=== PATIENT | male | born 1985 | race Caucasian/White ===

== ENCOUNTER → 2016-07-07 06:37 | Emergency (ER) | payer BC ==
[~2016-07-07 06:37] MED LIST: DOXYcycline CAP(*) 100 MG PO ONE
--- NOTE | 2016-07-07 06:42 | ED ---
Bite Injury/Animal - HPI Summary HPI Summary: 31M presents with tick bite on Thursday. He removed the tick from his left thigh. He states the tick was a deer tick and was very painful to remove and appeared to be engorged. His removed it with the tick removal tool and got the head. The area where the tick was is red. He states he thinks the tick has been on for at least 24 hours. He states he has removed many ticks in the past but it has never been this painful. - History of Current Complaint Chief Complaint: EDAnimalBite Stated Complaint: TICK BITE Time Seen by Provider: 07/07/16 06:41 - Allergies/Home Medications Allergies/Adverse Reactions: Allergies Allergy/AdvReac Type Severity Reaction Status Date / Time Atropine Allergy Severe See Comment Verified 04/19/14 04:42 PMH/Surg Hx/FS Hx/Imm Hx Endocrine/Hematology History: Reports: Hx Anticoagulant Therapy EENT History: Denies: Hx Hearing Problem - Social History Alcohol Use: Occasionally Alcohol Amount: once a month Substance Use Type: Reports: None Smoking Status (MU): Never Smoked Tobacco Review of Systems Negative: Fever Negative: Chest Pain Negative: Shortness Of Breath Positive: Other - tick bite on left thigh All Other Systems Reviewed And Are Negative: Yes Physical Exam Triage Information Reviewed: Yes Vital Signs Reviewed: Yes Appearance: Positive: Well-Appearing Skin: Positive: Warm, Dry, Other - lesion noted on left thigh Head/Face: Positive: Normal Head/Face Inspection Eyes: Positive: Normal, Conjunctiva Clear Respiratory/Lung Sounds: Positive: Clear to Auscultation, Breath Sounds Present Cardiovascular: Positive: Normal, RRR Bite Injury Course/Dx - Course Course Of Treatment: 31M presents with tick bite on Thursday. states tick was engorged and was able to remove it with tick removal. discussed tick ppx and agreed that due to being engorged and it being less than 72 hours going to treat ppx for lyme disease. gave 200mg doxycycline as patient no contraindication. patient understands and agrees with plan - Diagnoses Differential Diagnosis/HQI/PQRI: Positive: Puncture, Other - lyme, tick bite Provider Diagnosis: Tick bite Discharge - Discharge Plan Condition: Good Disposition: HOME Patient Education Materials: Tick Bite (ED) Referrals: Antony DUNNE,Mark Talavera [Primary Care Provider] - Additional Instructions: You have been prophylactically treated for Lyme disease Return to ED if develop any rash or signs of infection
[2016-07-07 06:51] VITALS: BP 147/94
== END | disposition home or self-care (01) ==
LOC: ED 06:37
DX: S70.362A Insect bite (nonvenomous), left thigh, initial encounter (principal); W57.XXXA Bitten or stung by nonvenomous insect and other nonvenomous arthropods, initial encounter; Y93.9 Activity, unspecified; Y92.9 Unspecified place or not applicable; Y99.9 Unspecified external cause status
CPT/HCPCS: 99281; A9270-GY

== ENCOUNTER 2016-10-08 07:43 | Emergency (ER) | payer BC ==
[2016-10-08] MEDS ORDERED: Meclizine TAB* 12.5 MG PO ONE (08:25)
--- NOTE | 2016-10-08 08:56 | RAD ---
Indication: Vertigo. Comparison is made with previous exam dated April 19, 2014. CT of the brain was performed without IV contrast. Ventricular structures are midline. No midline shift is noted. The extra-axial spaces are unremarkable. There is no evidence of intracranial mass or hemorrhage. No other high or low density lesions are identified. Mastoid air cells and paranasal sinuses are otherwise unremarkable. IMPRESSION: There is no evidence of intracranial mass or hemorrhage noted.
[2016-10-08 10:00] LABS: Hematocrit 48 % (42-52); Hemoglobin 16.6 g/dl (14.0-18.0); Mean Corpuscular HGB Conc 34 g/dl (31-36); Mean Corpuscular Hemoglobin 31 pg (27-31); Mean Corpuscular Volume 89 fL (80-94); Mean Platelet Volume 8 um3 (7.4-10.4); Red Blood Count 5.43 10^6/ul (4.0-5.4); Red Cell Distribution Width 13 % (10.5-15); White Blood Count 8.9 10^3/ul (3.5-10.8)
[2016-10-08 10:12] LABS: Albumin 4.2 g/dL (3.2-5.2); BUN/Creatinine Ratio 17.7 (8-20); Calcium 9.5 mg/dL (8.6-10.3); EGFR Non-African American 90.2 (>60); Globulin 2.6 g/dL (2-4); Potassium 4.3 mmol/L (3.5-5.0); Total Bilirubin 0.6 mg/dL (0.2-1.0); Total Protein 6.8 g/dL (6.4-8.9)
[2016-10-08 10:50] VITALS: BP 137/82
--- NOTE | 2016-10-08 10:54 | ED ---
Yoni Oakes Benjamin, scribed for Alexander Allison MD on 10/08/16 at 0905 . Dizziness - HPI Summary HPI Summary: 31yo male c/o sudden onset of dizziness today where he felt like he was going to pass out. Pt states that he was losing balance and leaning to his right side. Pt also reports diaphoresis, mild nausea and dyspnea. 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 Pt was put on coumadin after his PE episode but is not on any blood thinner currently. Dizziness worsens with erect position and lying down helps his dizziness. - History Of Current Complaint Chief Complaint: EDDizziness Stated Complaint: DIZZY/SWEATING Time Seen by Provider: 10/08/16 07:58 Hx Obtained From: Patient Onset/Duration: Still Present, Suddenly Timing: Constant Severity Initially: Moderate Severity Currently: Moderate Character: Head Spinning, Dizzy Aggravating Factor(s): Position Change, Supine To Erect, Change In Head Position Alleviating Factor(s): Lying Down Associated Signs And Symptoms: Positive: Nausea, Diaphoresis - Allergies/Home Medications Allergies/Adverse Reactions: Allergies Allergy/AdvReac Type Severity Reaction Status Date / Time Atropine Allergy Severe See Comment Verified 04/19/14 04:42 PMH/Surg Hx/FS Hx/Imm Hx Endocrine/Hematology History: Reports: Hx Anticoagulant Therapy Cardiovascular History: Reports: Hx Deep Vein Thrombosis Respiratory History: Reports: Hx Pulmonary Edema Sensory History: Denies: Hx Hearing Problem Infectious Disease History: No Infectious Disease History: Denies: Traveled Outside the [place] in Last 30 Days - Family History Known Family History: Positive: Cardiac Disease, Hypertension, Blood Disorder - clotting disorders Negative: Diabetes - Social History Occupation: Employed Full-time Alcohol Use: Occasionally Alcohol Amount: once a month Substance Use Type: Reports: None Smoking Status (MU): Never Smoked Tobacco Review of Systems Positive: Skin Diaphoresis Eyes: Negative ENT: Negative Cardiovascular: Negative Respiratory: Negative Positive: Nausea Genitourinary: Negative Musculoskeletal: Negative Skin: Negative Neurological: Other - dizziness Psychological: Normal All Other Systems Reviewed And Are Negative: Yes Physical Exam Triage Information Reviewed: Yes Vital Signs On Initial Exam: Initial Vitals Temp Pulse Resp BP Pulse Ox 95.9 F 75 20 149/88 95 10/08/16 07:44 10/08/16 07:44 10/08/16 07:44 10/08/16 07:44 10/08/16 07:44 Vital Signs Reviewed: Yes Appearance: Positive: Well-Appearing, No Pain Distress, Well-Nourished Skin: Positive: Warm, Skin Color Reflects Adequate Perfusion, Dry Head/Face: Positive: Normal Head/Face Inspection Eyes: Positive: Normal ENT: Positive: Normal ENT inspection Neck: Positive: Supple, Nontender Respiratory/Lung Sounds: Positive: Clear to Auscultation, Breath Sounds Present Cardiovascular: Positive: RRR Abdomen Description: Positive: Nontender, Soft Bowel Sounds: Positive: Present Musculoskeletal: Positive: Normal, Strength/ROM Intact Neurological: Positive: Normal, Sensory/Motor Intact, Alert, Oriented to Person Place, Time, CN Intact II-III Psychiatric: Positive: Affect/Mood Appropriate - [place] Coma Scale Coma Scale Total: 15 Diagnostics - Vital Signs Vital Signs Temp Pulse Resp BP Pulse Ox 10/08/16 08:05 73 14 97 10/08/16 07:53 97 F 71 15 141/82 98 10/08/16 07:44 95.9 F 75 20 149/88 95 - Laboratory Lab Results: Lab Results 10/08/16 10/08/16 10/08/16 Range/Units 09:45 09:45 09:45 WBC 8.9 (3.5-10.8) 10^3/ul RBC 5.43 H (4.0-5.4) 10^6/ul Hgb 16.6 (14.0-18.0) g/dl Hct 48 (42-52) % MCV 89 (80-94) fL MCH 31 (27-31) pg MCHC 34 (31-36) g/dl RDW 13 (10.5-15) % Plt Count 240 (150-450) 10^3/ul MPV 8 (7.4-10.4) um3 Neut % (Auto) 73.3 (38-83) % Lymph % (Auto) 18.1 L (25-47) % [place] % (Auto) 7.2 (1-9) % Eos % (Auto) 0.7 (0-6) % Baso % (Auto) 0.7 (0-2) % Absolute Neuts (auto) 6.5 (1.5-7.7) 10^3/ul Absolute Lymphs (auto) 1.6 (1.0-4.8) 10^3/ul Absolute Monos (auto) 0.6 (0-0.8) 10^3/ul Absolute Eos (auto) 0.1 (0-0.6) 10^3/ul Absolute Basos (auto) 0.1 (0-0.2) 10^3/ul Absolute Nucleated RBC 0 10^3/ul Nucleated RBC % 0 INR (Anticoag Therapy) 0.90 (0.89-1.11) Sodium 138 (133-145) mmol/L Potassium 4.3 (3.5-5.0) mmol/L Chloride 107 (101-111) mmol/L Carbon Dioxide 25 (22-32) mmol/L Anion Gap 6 (2-11) mmol/L BUN 17 (6-24) mg/dL Creatinine 0.96 (0.67-1.17) mg/dL Est GFR ( Amer) 116.0 (>60) Est GFR (Non-Af Amer) 90.2 (>60) BUN/Creatinine Ratio 17.7 (8-20) Glucose 85 (70-100) mg/dL Calcium 9.5 (8.6-10.3) mg/dL Total Bilirubin 0.60 (0.2-1.0) mg/dL AST 21 (13-39) U/L ALT 36 (7-52) U/L Alkaline Phosphatase 32 L (34-104) U/L Total Protein 6.8 (6.4-8.9) g/dL Albumin 4.2 (3.2-5.2) g/dL Globulin 2.6 (2-4) g/dL Albumin/Globulin Ratio 1.6 (1-3) Result Diagrams: 10/08/16 09:45 10/08/16 09:45 Lab Statement: Any lab studies that have been ordered have been reviewed, and results considered in the medical decision making process. - CT CT brain CT Interpretation: No Acute Changes CT Interpretation Completed By: Radiologist - EKG 0753. Cardiac Rate: NL - 74bpm EKG Rhythm: Sinus Rhythm ST Segment: Normal Ectopy: None Dizzy Course/Dx - Course Course Of Treatment: Mr. Carney presented with the acute onset of vertigo. He was evaluated by Dr. Thompson, labs and CT. He improved significantly with meclizine.This seems to be a peripheral vertigo and he will be treated as an outpatient with meclizine. - Diagnoses Provider Diagnoses: Peripheral vertigo Discharge - Discharge Plan Condition: Stable Disposition: HOME Prescriptions: Meclizine TAB* [Antivert 12.5 TAB*] 25 mg PO TID PRN #20 tab PRN Reason: Dizziness Patient Education Materials: Vertigo (ED) Referrals: Antony DUNNE,Mark Talavera [Primary Care Provider] - The documentation as recorded by the Yoni tucker Benjamin accurately reflects the service I personally performed and the decisions made by , Alexander Allison MD.
--- NOTE | 2016-10-08 14:10 | CONS ---
NEUROLOGY CONSULTATION: DATE OF CONSULT: 10/08/16 REFERRING PHYSICIAN: Dr. Allison. LOCATION: He is in the emergency room. CHIEF COMPLAINT: Dizziness, nausea. 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 He felt like he might pass out and broke out into a sweat. He presented to the emergency room. He finds his nausea has improved but if he moves he feels very dizzy and nauseous. He felt close to vomiting but did not. He felt like he might pass out but did not lose consciousness or fall. Subsequently, he was noted some numbness and tingling in his left hand. He says that he has had that before in association with migraine headaches. He has a history of migraines with visual aura consisting of flickering lights and then numbness of his left hand, which moves up the arm and into the left side of his face. It is then followed by a bad pounding headache with nausea. He has had vertigo with migraine headaches as well in the past. He has not had episodes of vertigo without headache, however. He had some recent tooth pain from a chipped tooth and took a Vicodin from his last night. Normally, he does not take any medications on a regular basis. He does not have a bad headache but he has still some pressure in the left maxillary area. He does not have any ear pain today or in recent days and no change in hearing recently. He feels his vision is a little bit blurry but no double vision. He does not have any numbness in his face currently nor in his limbs. PAST MEDICAL HISTORY: Unremarkable. He is generally in very good health. He does not take any medications on a regular basis. Past medical history is notable for heterozygous Leiden factor V mutation. He had a DVT by a venous Doppler on 10/27/12. However, he says he does not take any medication on a regular basis, and I will have to go back and ask him if that includes aspirin or not. He had a brain MRI on 04/19/14 when he presented with a bad headache and left-sided numbness. MEDICATIONS: Again, he says he takes no medication on a regular basis but took a Vicodin last night. ALLERGIES: He is listed as having an allergy to ATROPINE. REVIEW OF SYSTEMS: Negative for current headache, some blurry vision but no double vision, no change in hearing or tinnitus. He has not had any fevers or chills. He has not had any recent weight loss. There is no history of head trauma or recent falls. He does not notice any weakness in his limbs nor numbness in his lower extremities. There is no history of diabetes or heart disease. He is a nonsmoker. He has seasonal allergies. PHYSICAL EXAMINATION: He is a well-nourished, well-hydrated, and somewhat overweight. Blood pressure on this monitor is 140/80, heart rate in the 70s and in sinus, respiratory rate is 18. Heart is in a regular rate and rhythm without murmurs. Carotid pulses are hard to feel but there are no cervical bruits. Neck is supple. Oral mucosa is moist and I do not see any pharyngeal erythema. Tympanic membranes are a little dull bilaterally but no pus or bulging. Neurologic Exam: Pupils react equally from 4 to 2.5 mm. Funduscopic exam reveals normal discs. Eye movements are normal and specifically there is no nystagmus. There is no ptosis either. Facial musculature is symmetric. Facial sensation to light touch is intact and symmetric. Tongue protrudes in the midline and palate rises symmetrically. There is no dysarthria. Hearing is intact bilaterally. Motor exam reveals normal tone and strength in upper and lower extremities. There is no drift of any limb. [id number] maneuver is normal bilaterally. Finger taps are normal in both hands. Sensory exam is intact to light touch in all 4 limbs. Reflexes are hypoactive but present. Plantar responses are flexor bilaterally. I did not attempt to ambulate him. He is alert and a good detailed historian. Memory is intact and language is fluent. He has good attention, concentration, and fund of knowledge. IMPRESSION: Acute onset of vertigo with nausea, which may be migrainous. He does not have any abnormalities on neurological exam to suggest a focal brainstem lesion. At this point, I would recommend he get a stat brain CT without contrast and some routine labs. I think it is safe to give him meclizine for symptoms and we will see what evolves. If he develops some of his typical migraines, then we can safely we conclude that this is migrainous vertigo. If symptoms persist and he does not get a headache, we may need to get an MRI of his brain and also perhaps an MR angiogram or CT angiogram of his posterior circulation. [id number]/[facility] #: [id number] SARAH
== END 2016-10-08 10:55 | disposition home or self-care (01) ==
LOC: ED 07:43
DX: R42 Dizziness and giddiness (principal); R06.00 Dyspnea, unspecified
CPT/HCPCS: 36415; 70450; 80053; 85025; 85610; 93005; 99282; A9270-GY

== ENCOUNTER 2017-02-04 06:04 | Emergency (ER) | payer BC ==
[2017-02-04 06:09] VITALS: BP 157/95
[2017-02-04] MEDS ORDERED: oxyCODONE/Acetamin 5/325 MG* TAB PO ONE (06:17)
[2017-02-04] MEDS ORDERED: Clindamycin CAP* 150 MG PO ONE (06:18)
[2017-02-04] MEDS ORDERED: Ibuprofen TAB* 800 MG PO ONE (06:18)
--- NOTE | 2017-02-04 06:24 | ED ---
Janneth Oakes Thomas, scribed for Srini Fermin MD on 02/04/17 at 0620 . Throat Pain/Nasal Congestion - HPI Summary HPI Summary: The pt is a 31 y/o M presenting to the ED c/o chronic dental pain that has worsened in the last week. The patient rates the pain 6/10. The pain is constant. He has a broken left upper molar. There is decay in the upper molars. - History of Current Complaint Chief Complaint: EDDentalPain Time Seen by Provider: 02/04/17 06:12 Hx Obtained From: Patient Onset/Duration: Lasting Weeks - chronic, Still Present, Worse Since - last week Severity: Moderate Associated Signs And Symptoms: Positive: Negative Cough: None Related History: Other (Noted In Comments) - Chronic dental problems - Allergies/Home Medications Allergies/Adverse Reactions: Allergies Allergy/AdvReac Type Severity Reaction Status Date / Time Atropine Allergy Severe See Comment Verified 02/04/17 06:09 PMH/Surg Hx/FS Hx/Imm Hx Previously Healthy: No Endocrine/Hematology History: Reports: Hx Anticoagulant Therapy Cardiovascular History: Reports: Hx Deep Vein Thrombosis Respiratory History: Reports: Hx Pulmonary Edema Sensory History: Denies: Hx Hearing Problem Infectious Disease History: No Infectious Disease History: Denies: Traveled Outside the [place] in Last 30 Days - Family History Known Family History: Positive: Cardiac Disease, Hypertension, Blood Disorder - clotting disorders Negative: Diabetes - Social History Occupation: Employed Full-time Alcohol Use: Occasionally Alcohol Amount: once a month Substance Use Type: Reports: None Smoking Status (MU): Never Smoked Tobacco Review of Systems Negative: Fever Positive: Dental Pain All Other Systems Reviewed And Are Negative: Yes Physical Exam - Summary Physical Exam Summary: VITAL SIGNS: Reviewed. GENERAL: Patient is a well-developed and nourished male who is lying comfortable in the stretcher. Patient is not in any acute respiratory distress. HEAD AND FACE: No signs of trauma. No ecchymosis, hematomas or skull depressions. No sinus tenderness. EYES: PERRLA, EOMI x 2, No injected conjunctiva, no nystagmus. He has a broken left upper molar. There is decay in the upper molars. EARS: Hearing grossly intact. Ear canals and tympanic membranes are within normal limits. MOUTH: Oropharynx within normal limits. NECK: Supple, trachea is midline, no adenopathy, no JVD, no carotid bruit, no c- spine tenderness, neck with full ROM. CHEST: Symmetric, no tenderness at palpation LUNGS: Clear to auscultation bilaterally. No wheezing or crackles. CVS: Regular rate and rhythm, S1 and S2 present, no murmurs or gallops appreciated. ABDOMEN: Soft, non-tender. No signs of distention. No rebound no guarding, and no masses palpated. Bowel sounds are normal. EXTREMITIES: FROM in all major joints, no edema, no cyanosis or clubbing. NEURO: Alert and oriented x 3. No acute neurological deficits. Speech is normal and follows commands. SKIN: Dry and warm Triage Information Reviewed: Yes Vital Signs On Initial Exam: Initial Vitals Temp Pulse Resp BP Pulse Ox 97.1 F 75 18 157/95 96 02/04/17 06:06 02/04/17 06:06 02/04/17 06:06 02/04/17 06:06 02/04/17 06:06 Vital Signs Reviewed: Yes Diagnostics - Vital Signs Vital Signs Temp Pulse Resp BP Pulse Ox 02/04/17 06:06 97.1 F 75 18 157/95 96 - Laboratory Lab Statement: Any lab studies that have been ordered have been reviewed, and results considered in the medical decision making process. EENT Course/Dx - Course Assessment/Plan: The pt is a 31 y/o M presenting to the ED c/o chronic dental pain that has worsened in the last week. The patient rates the pain 6/10. The pain is constant. He has a broken left upper molar. There is decay in the upper molars. The patient was given clindamycin, ibuprofen, and Percocet. He is discharged with follow up at the dentist. - Diagnoses Provider Diagnoses: Dental decay, Gingivitis Discharge - Discharge Plan Condition: Stable Disposition: HOME Patient Education Materials: Toothache (ED), Gingivitis (ED) Referrals: Antony DUNNE,Mark Talavera [Primary Care Provider] - If Needed Additional Instructions: Follow up at your dentist in the next 2-3 days. The documentation as recorded by the Janneth tucker Thomas accurately reflects the service I personally performed and the decisions made by , Srini Fermin MD.
== END 2017-02-04 06:35 | disposition home or self-care (01) ==
LOC: ED 06:04
DX: K02.9 Dental caries, unspecified (principal); K05.10 Chronic gingivitis, plaque induced; K08.89 Other specified disorders of teeth and supporting structures
CPT/HCPCS: 99282; A9270-GY

== ENCOUNTER 2017-02-22 12:42 | Emergency (ER) | payer BC ==
--- NOTE | 2017-02-22 14:19 | RAD ---
INDICATION: RIGHT leg pain. History of LEFT lower extremity DVT. COMPARISON: November 14, 2011 LEFT lower extremity venous ultrasound. TECHNIQUE: Montero scale, color Doppler, and spectral analysis of the deep veins of the RIGHT lower extremity. Vessel compression, phasicity, and augmentation assessed. REPORT: The RIGHT common femoral, great saphenous, profunda femoral, femoral, popliteal, peroneal, and posterior tibial veins are patent. Patency of the LEFT common femoral vein documented. IMPRESSION: No evidence for RIGHT lower extremity deep venous thrombosis.
[2017-02-22 14:57] VITALS: BP 167/106
--- NOTE | 2017-02-22 16:58 | ED ---
Tanya Oakes Gabriel, scribed for Alexander Allison MD on 02/22/17 at 1310 . Back Pain - HPI Summary HPI Summary: This patient is a 31 year old M presenting [facility] [place] [place] by with a chief complaint of right sided back pain since a week ago. The patient rates the pain 10/10 in severity and radiating down his right leg into the front of his suggs. He states the pain started after he had been sitting for extended periods of time that weekend. Patient has a history of PEs and DVTs and would like to rule them out. He also has broken his back and deals with chronic back pain. - History of Current Complaint Chief Complaint: EDBackInjuryPain Stated Complaint: RT HIP PAIN Time Seen by Provider: 02/22/17 12:47 Hx Obtained From: Patient Onset/Duration: Lasting Weeks - 1, Still Present Onset/Duration: Still Present Timing: Constant Severity Initially: Severe Severity Currently: Severe Pain Intensity: 10 Pain Scale Used: 0-10 Numeric Related History: Previous Back Injury - broke L3 - Allergies/Home Medications Allergies/Adverse Reactions: Allergies Allergy/AdvReac Type Severity Reaction Status Date / Time Atropine Allergy Severe See Comment Verified 02/22/17 12:52 PMH/Surg Hx/FS Hx/Imm Hx Previously Healthy: No Endocrine/Hematology History: Reports: Hx Anticoagulant Therapy Cardiovascular History: Reports: Hx Deep Vein Thrombosis Respiratory History: Reports: Hx Pulmonary Edema Sensory History: Denies: Hx Hearing Problem Infectious Disease History: No Infectious Disease History: Denies: Traveled Outside the [place] in Last 30 Days - Family History Known Family History: Positive: Cardiac Disease, Hypertension, Blood Disorder - clotting disorders Negative: Diabetes - Social History Alcohol Use: Occasionally Alcohol Amount: once a month Hx Substance Use: No Substance Use Type: Reports: None Hx Tobacco Use: No Smoking Status (MU): Never Smoked Tobacco Review of Systems Negative: Fever Positive: Other - back pain All Other Systems Reviewed And Are Negative: Yes Physical Exam - Summary Physical Exam Summary: Appearance: The patient is well-nourished in no acute distress and in no acute pain. Skin: The skin is warm and dry and skin color reflects adequate perfusion. HEENT: ~The head is normocephalic and atraumatic. The pupils are equal and reactive. The conjunctivae are clear and without drainage. ~Nares are patent and without drainage. ~Mouth reveals moist mucous membranes and the throat is without erythema and exudate. ~The external ears are intact. The ear canals are patent and without drainage. The tympanic membranes are intact. Neck: the neck is supple with full range of motion and non-tender. There are no carotid bruits. ~There is no neck vein distension. Respiratory: Chest is non-tender. ~Lungs are clear to auscultation and breath sounds are symmetrical and equal. Cardiovascular: Heart is regular rate and rhythm. ~There is no murmur or rub auscultated. ~~There is no peripheral edema and pulses are symmetrical and equal. Abdomen: The abdomen is soft and non-tender. ~There are normal bowel sounds heard in all four quadrants and there is no organomegaly palpated. Musculoskeletal: There is tenderness in right sciatica area. Extremities are non -tender with full range of motion. ~There is good capillary refill. ~There is no peripheral edema or calf tenderness elicited. Neurological: Patient is alert and oriented to person, place and time. ~The patient has symmetrical motor strength in all four extremities. ~Cranial nerves are grossly intact. Deep tendon reflexes are symmetrical and equal in all four extremities. Psychiatric: The patient has an appropriate affect and does not exhibit any anxiety or depression. Triage Information Reviewed: Yes Vital Signs On Initial Exam: Initial Vitals Temp Pulse Resp BP Pulse Ox 97.4 F 86 16 139/95 97 02/22/17 12:50 02/22/17 12:50 02/22/17 12:50 02/22/17 12:50 02/22/17 12:50 Vital Signs Reviewed: Yes Diagnostics - Vital Signs Vital Signs Temp Pulse Resp BP Pulse Ox 02/22/17 12:50 97.4 F 86 16 139/95 97 - Laboratory Lab Statement: Any lab studies that have been ordered have been reviewed, and results considered in the medical decision making process. - Additional Comments Diagnostic Additional Comments: Venous Doppler study reveals, per radiologist, No evidence for RIGHT lower extremity deep venous thrombosis. ED physician has reviewed this radiology report. Back Pain Course/Dx - Course Course Of Treatment: Mr. Carney presented with what seemed like right sciatica pain but felt to him similar to his previous DVT (he has Factor 5 Leiden). An U /S was negative for clot and I will treat him conventionally. - Diagnoses Provider Diagnoses: Acute sciatica Discharge - Discharge Plan Condition: Stable Disposition: HOME Prescriptions: LORazepam TAB(*) [Ativan TAB(*)] 1 mg PO Q6H PRN #20 tab MDD 4 PRN Reason: Pain oxyCODONE/Acetamin 5/325 MG* [Percocet 5/325 TAB*] 1 tab PO Q6H PRN #20 tab MDD 4 PRN Reason: Pain Patient Education Materials: Hydrocodone/Acetaminophen (By mouth), Lorazepam ( By mouth) Forms: *Work Release Referrals: Antony DUNNE,Mark Talavera [Primary Care Provider] - Additional Instructions: RETURN TO THE EMERGENCY DEPARTMENT FOR CHANGING OR WORSENING SYMPTOMS. The documentation as recorded by the Tanya tucker Gabriel accurately reflects the service I personally performed and the decisions made by , Alexander Allison MD.
== END 2017-02-22 14:55 | disposition home or self-care (01) ==
LOC: ED 12:42
DX: M54.30 Sciatica, unspecified side (principal); M79.604 Pain in right leg
CPT/HCPCS: 99282

== ENCOUNTER 2017-02-25 11:04 | Emergency (ER) | payer BC ==
[2017-02-25] MEDS ORDERED: Ondansetron INJ* 2 MG/ML VIAL IV ONE (11:11)
[2017-02-25] MEDS ORDERED: Morphine INJ* 4 MG/ML 1 ML CARPUJECT IV ONE (11:11)
[2017-02-25] MEDS ORDERED: Dexamethasone IV* 4 MG/ML 1 ML (4 MG) IV SLOW PU ONE (11:22)
[2017-02-25] MEDS ORDERED: HYDROmorphone INJ* 2 MG/ML CARPUJECT SYRINGE ONE (11:43)
[2017-02-25] MEDS ORDERED: HYDROmorphone INJ* 2 MG/ML CARPUJECT SYRINGE IV SLOW PU ONE (11:47)
[2017-02-25] MEDS ORDERED: Ketorolac INJ* 30 MG/ML 1 ML VIAL IV PUSH ONE (12:03)
[2017-02-25] MEDS ORDERED: Diazepam SYRINGE* 5 MG/ML 2 ML SYRINGE (10 MG total) IV ONE (12:03)
[2017-02-25] MEDS ORDERED: Diazepam TAB(*) 5 MG PO ONE (12:09)
[2017-02-25] MEDS ORDERED: Ondansetron ODT TAB* 4 MG ONE (15:26)
[2017-02-25 15:40] VITALS: BP 128/84
[2017-02-25] MEDS ORDERED: Ondansetron ODT TAB* 4 MG PO ONE (15:43)
--- NOTE | 2017-02-25 22:57 | ED ---
Tanya Oakes Gabriel, scribed for Rafiq Gomez MD on 02/25/17 at 1115 . Back Pain - HPI Summary HPI Summary: This patient is a 31 year old M BIBA to [facility] with a chief complaint of back pain exacerbation since two weeks ago. The patient rates the throbbing pain 9/ 10 in severity and radiating down his quad, into the front of his suggs. Symptoms aggravated by movement. Symptoms alleviated by lying. Patient reports hip pain, increased urination retention, and weakness in LE. Patient denies incontinence, CP, SOB, and LE edema. Pt takes Percocet and ASA for pain. - History of Current Complaint Chief Complaint: EDBackInjuryPain Stated Complaint: BACK PAIN Time Seen by Provider: 02/25/17 11:10 Hx Obtained From: Patient Onset/Duration: Lasting Weeks - 2, Still Present Timing: Constant Severity Initially: Mild Severity Currently: Severe Pain Intensity: 9 Pain Scale Used: 0-10 Numeric Character: Throbbing Aggravating Symptom(s): Movement Alleviating Symptom(s): Rest Associated Signs And Symptoms: Positive: Negative - incontinence, CP, SOB, and LE edema, Other - hip pain, increased urination retention, and weakness in LE - Allergies/Home Medications Allergies/Adverse Reactions: Allergies Allergy/AdvReac Type Severity Reaction Status Date / Time Atropine Allergy Severe See Comment Verified 02/22/17 12:52 PMH/Surg Hx/FS Hx/Imm Hx Previously Healthy: No Endocrine/Hematology History: Reports: Hx Anticoagulant Therapy Cardiovascular History: Reports: Hx Deep Vein Thrombosis Respiratory History: Reports: Hx Pulmonary Edema Sensory History: Denies: Hx Hearing Problem Infectious Disease History: No Infectious Disease History: Denies: Traveled Outside the [place] in Last 30 Days - Family History Known Family History: Positive: Cardiac Disease, Hypertension, Blood Disorder - clotting disorders Negative: Diabetes - Social History Alcohol Use: Occasionally Alcohol Amount: once a month Hx Substance Use: No Substance Use Type: Reports: None Hx Tobacco Use: No Smoking Status (MU): Never Smoked Tobacco Review of Systems Negative: Fever, Chills Negative: Erythema Negative: Sore Throat Negative: Chest Pain Negative: Shortness Of Breath, Cough Negative: Abdominal Pain, Vomiting, Diarrhea Positive: other - urination retention. Negative: dysuria, hematuria Positive: Other - Back pain and hip pain . Negative: Edema Negative: Rash Neurological: Negative - dizziness Positive: Weakness - LE All Other Systems Reviewed And Are Negative: Yes Physical Exam - Summary Physical Exam Summary: Constitutional: Well-developed, Well-nourished, Alert. (-) Distressed Skin: Warm, Dry HENT: Normocephalic; Atraumatic Eyes: Conjunctiva normal Neck: Musculoskeletal ROM normal neck. (-) JVD, (-) Stridor, (-) Tracheal deviation Cardio: Rhythm regular, rate normal, Heart sounds normal; Intact distal pulses; The pedal pulses are 2+ and symmetric. Radial pulses are 2+ and symmetric. (-) Murmur Pulmonary/Chest wall: Effort normal. (-) Respiratory distress, (-) Wheezes, (-) Rales Abd: Soft, (-) Tenderness, (-) Distension, (-) Guarding, (-) Rebound Musculoskeletal: (-) Edema, Positive crossed straight leg raise Lymph: (-) Cervical adenopathy Neuro: Alert, Oriented x3 Psych: Mood and affect Normal Triage Information Reviewed: Yes Vital Signs On Initial Exam: Initial Vitals Temp Pulse Resp BP Pulse Ox 98.1 F 91 22 158/100 97 02/25/17 11:10 02/25/17 11:10 02/25/17 11:10 02/25/17 11:10 02/25/17 11:10 Vital Signs Reviewed: Yes Diagnostics - Vital Signs Vital Signs Temp Pulse Resp BP Pulse Ox 02/25/17 11:10 98.1 F 91 22 158/100 97 - Laboratory Lab Statement: Any lab studies that have been ordered have been reviewed, and results considered in the medical decision making process. Re-Evaluation - Re-Evaluation First Eval Re-Evaluation Time: 12:54 Change: Improved - Pt is feeling more comfortable but doesnt like he can stand. Also he reports feeling too tired to get up. Back Pain Course/Dx - Course Assessment/Plan: This patient is a 31 year old M BIBA to [facility] with a chief complaint of back pain exacerbation since two Saturdays ago. The patient rates the throbbing pain 9/10 in severity radiates down the side into the front of his suggs. Symptoms aggravated by movement. Symptoms alleviated by lying. Patient reports hip pain, increased urination retention, and weakness in LE. Patient denies incontinence, CP, SOB, and LE edema. Pt takes Percocet and ASA for pain. In the ED course the patient was given medication for pain and is now feeling better and is able to bare weight. Pt will be diagnosed with sciatica and a suspected herniated disc. Patient will be discharged with prescription for pain medication and prednisone and follow up from Dr. Feng. The patient is agreeable with this plan. - Diagnoses Provider Diagnoses: Sciatica Discharge - Discharge Plan Condition: Stable Disposition: HOME Prescriptions: Lidocaine PATCH 5%* [Lidoderm 5% Patch*] 1 patch TRANSDERM DAILY #10 patch Naproxen TAB* [Naprosyn 250 mg TAB*] 500 mg PO Q8H PRN #15 tab PRN Reason: Pain - Moderate To Severe oxyCODONE/Acetamin 5/325 MG* [Percocet 5/325 TAB*] 1 tab PO Q4H PRN #15 tab MDD 6 PRN Reason: Pain - Moderate To Severe predniSONE TAB* [Deltasone TAB*] 50 mg PO DAILY #5 tab Patient Education Materials: Naproxen (By mouth), Oxycodone/Acetaminophen (By mouth), Prednisone (By mouth), Lidocaine Patch (On the skin), Sciatica (ED) Forms: *Work Release Referrals: Antony DUNNE,Mark Talavera [Primary Care Provider] - Joby Lopez MD [Medical Doctor] - 2 Days Additional Instructions: RETURN TO THE EMERGENCY DEPARTMENT FOR CHANGING OR WORSENING SYMPTOMS The documentation as recorded by the Tanya tucker Gabriel accurately reflects the service I personally performed and the decisions made by , Rafiq Gomez MD.
== END 2017-02-25 15:39 | disposition home or self-care (01) ==
LOC: ED 11:04
DX: M54.30 Sciatica, unspecified side (principal); Z79.01 Long term (current) use of anticoagulants; Z86.718 Personal history of other venous thrombosis and embolism; Z86.711 Personal history of pulmonary embolism
CPT/HCPCS: 99283; A9270-GY; J1100; J1170; J1885; J2270; J2405

== ENCOUNTER 2017-05-21 09:19 | Observation (INO) | payer BC ==
[~2017-05-21 09:19] MED LIST changes: +Buffered Lidocaine 0.9% SYRIN* 5 ML/SYR SYRINGE INTRADERM ONE; -DOXYcycline CAP(*) 100 MG PO ONE
[2017-05-21] MEDS ORDERED: ceFAZolin 2 GM in 100 MLS NS (*) BAG IVPB ONE (09:32)
[2017-05-21] MEDS ORDERED: Buffered Lidocaine 0.9% SYRIN* 5 ML/SYR SYRINGE ONE (09:32)
[2017-05-21] MEDS ORDERED: Lidocaine 1% MPF wEPI 200,000* 30 ML SDV ONE (10:30)
[2017-05-21] MEDS ORDERED: Thrombin 5,000 UNITS* 1 APPLIC KIT - topical use - TOPICAL ONE (10:31)
[2017-05-21] MEDS ORDERED: Bacitracin IV* 50,000 UNITS INJ ONE ×2 (10:31→16:37)
[2017-05-21] MEDS ORDERED: ceFAZolin 1 GM in Dextrose (*) 1 GM/50 ML BAG IVPB ONE (12:18)
[2017-05-21] MEDS ORDERED: Dexamethasone IV* 4 MG/ML 1 ML (4 MG) ONE (12:58)
[2017-05-21] MEDS ORDERED: Propofol* 10 MG/ML 20 ML BTL IV PUSH ONE (12:58)
[2017-05-21] MEDS ORDERED: Midazolam* 1 MG/ML 5 ML VIAL (5 MG) ONE (12:59)
[2017-05-21] MEDS ORDERED: fentaNYL* 50 MCG/ML 5 ML VIAL (250 MCG VIAL) ONE (12:59)
[2017-05-21] MEDS ORDERED: Atracurium* 10 MG/ML 10 ML VIAL ONE (12:59)
[2017-05-21] MEDS ORDERED: Naloxone* 0.4 MG/ML 1 ML VIAL IV PRN (15:10)
[2017-05-21] MEDS ORDERED: oxyCODONE/Acetamin 5/325 MG* TAB PO PRN (15:10)
[2017-05-21] MEDS ORDERED: fentaNYL* 50 MCG/ML 2 ML VIAL (100 MCG VIAL) IV PRN (15:10)
[2017-05-21] MEDS ORDERED: Ondansetron INJ* 2 MG/ML VIAL IV PRN ×2 (15:10→17:07)
[2017-05-21] MEDS ORDERED: fentaNYL* 50 MCG/ML 2 ML VIAL (100 MCG VIAL) ONE ×2 (15:37→16:11)
[2017-05-21] MEDS ORDERED: Labetalol IV* 5 MG/ML 20 ML VIAL ONE (16:50)
[2017-05-21] MEDS ORDERED: Magnesium Hydroxide LIQ* 30 ML UDC PO PRN (17:07)
[2017-05-21] MEDS ORDERED: Acetaminophen TAB* 325 MG PO PRN (17:07)
[2017-05-21] MEDS ORDERED: Neostigmine Methylsulfate* 2 MG/2 ML SYRINGE ONE (17:15)
[2017-05-21] MEDS ORDERED: Glycopyrrolate IV* 0.2 MG/ML 1 ML VIAL ONE (17:15)
[2017-05-21] MEDS: HYDROmorphone INJ* 1 MG/ML CARPUJECT SYRINGE IV PRN ×5 (17:28→17:58)
[2017-05-21] MEDS ORDERED: HYDROmorphone INJ* 2 MG/ML CARPUJECT SYRINGE ONE (17:28)
--- NOTE | 2017-05-21 17:57 | RAD ---
CPT II Codes: 6045F INDICATION: Lumbar discectomy. Fluoroscopic services provided for referring physician. 39.8 seconds of fluoroscopy time was used. There is localization of the L3-L4 interspace. 10 spot images are reviewed. IMPRESSION: Localization of the L3-L4 interspace. Fluoroscopic services provided for referring physician.
[2017-05-21] MEDS: HYDROcodone/ACETAMIN 5-325 MG* 1 TAB PO PRN (19:01)
[2017-05-22] MEDS: HYDROcodone/ACETAMIN 5-325 MG* 1 TAB PO PRN ×4 (00:08→14:16)
[2017-05-22] MEDS ORDERED: Cyclobenzaprine TAB* 10 MG PO PRN (10:54)
[2017-05-22 14:23] VITALS: BP 124/62
--- NOTE | 2017-05-22 16:24 | PN ---
Progress Note - Progress Note Date of Service: 05/22/17 SOAP: Subjective: []No events ON. Patient ambulates. Pain under control. Rt LE pain improved. Tolerates PO well. Voids. Wants to go home. Objective: []VSS Afebrile. AAOx3, DORI, CN II-XII grossly intact. Motor 4-5/5 Sensory grossly intact to light touch, except decreased right L4 distribution. Assessment: []31 yom, POD#1 L4 MIS laminectomy, Ri L3-4 fragmentectomy and L4 foraminotomy. Plan: []Monitor VS, Neurochecks. Encourage ambulation. DC planning if cleared by PT. Rosa Lopez MD
--- NOTE | 2017-05-22 21:42 | OP ---
DATE OF OPERATION: 05/21/17 - ROOM #346 DATE OF : 81 SURGEON: Joby Lopez MD OPTO MECHANICAL TECHNICIAN: TAMARA Saenz. The procedure was done with assistance of a PA because of the complexity of the case. ANESTHESIOLOGIST: Jeffy Black MD ANESTHESIA: General. PRE-OP DIAGNOSIS: POST-OP DIAGNOSIS: OPERATIVE PROCEDURE: The patient underwent minimally invasive L4 laminectomy and right L3-4 fragmentectomy with right L4 extensive foraminotomy. INDICATIONS: The patient is a very pleasant 31-year-old gentleman with complaints of back pain radiating to the right lower extremity with weakness of the right lower extremity with MRI findings consistent with a large extruded disk fragment at the right L3-4 level, presenting at the level of L4 pedicle. After failing conservative treatment, the patient was offered the options of surgical intervention. After discussing expectation, limitations, and possible complications of the procedure with complications including but not limited to bleeding, infection, risk of injury to adjacent structures, paralysis, , need for additional procedures, anesthesia risk, stroke, blindness, cancer, instability, need for additional procedures in the future, the patient was agreeable to proceed with surgery and informed consent was obtained. The same was explained to the patient's father, mother, and . The patient and his family understood that his condition may not improve and in fact may get worse after the surgery and that he may need to have additional procedure in the future. He also understood that operative plan may be modified according to intraoperative findings and condition. ESTIMATED BLOOD LOSS: 50 cc. COMPLICATIONS: None. DESCRIPTION OF PROCEDURE: The patient was brought to the operating room and was placed under general anesthesia by the anesthesia team. The patient was then turned prone on the Favio frame on the Chad table and all bony prominences were meticulously padded. After appropriate surgical pause and patient identification, appropriate surgical level was identified with the use of intraoperative fluoroscopy and a small paramedian incision over the L3-4 space was made with #10 surgical blade after infiltrating the skin with local anesthetic. The incision was carried down to dorsal fascia and with use of dilators, the [employer] tubular retractor system was introduced. The operative microscope was brought into the field and after removing a few residual fibers of the paraspinal musculature, the lamina of L4 was easily identified. An almost complete laminectomy of L4 from the right side extending towards the left side was performed with high-speed drill. The ligamentum flavum was gently elevated and a partial medial facetectomy was performed. The medial border of the L4 pedicle was identified and intraoperative fluoroscopic imaging confirmed appropriate surgical level. Then, retraction of the thecal sac was gently performed with nerve root retractor. A large herniated disk fragment was identified in the expected level based on the preoperative imaging. This fragment was then removed gently in piecemeal fashion. At the end of the procedure, foraminotomy of L4 on the right was performed with Kerrison punches. At the end of the procedure, meticulous hemostasis was confirmed and careful inspection of the wound was performed and after copious irrigation, the thecal sac and the nerve root was found to be free of any pressure phenomenon. The tubular retractor was then gently removed and the incision was closed by layers with 2-0 interrupted Vicryl sutures for the subcutaneous tissue and the skin was covered with Dermabond. At the end of the procedure, the counts were reported to be corrected. The patient remained hemodynamically stable throughout the case. At the end of the procedure, the patient was then gently turned supine, was extubated, and was transferred to Recovery in excellent condition, moving all extremities well. [id number]/CPS #: [id number] SARAH
== END 2017-05-22 14:55 | disposition home or self-care (01) ==
LOC: OR 09:19 → SSU 17:07
PROVIDERS: ADMIT Neurological Surgery; ATTEND Neurological Surgery
PROC: 01NB0ZZ Release Lumbar Nerve, Open Approach (ICD-10-PCS; 2017-05-21)
PROC: 0SB20ZZ Excision of Lumbar Vertebral Disc, Open Approach (ICD-10-PCS; principal; 2017-05-21 10:45)
DX: M51.16 Intervertebral disc disorders with radiculopathy, lumbar region (principal); M54.10 Radiculopathy, site unspecified; D68.51 Activated protein C resistance
CPT/HCPCS: 76001; 96374; 96375; A9270-GY; G0378; J0690; J1100; J1170; J2001; J2250; J2405; J2704; J3010

== ENCOUNTER 2017-05-30 09:43 | Emergency (ER) | payer BC ==
[2017-05-30 10:21] LABS: ABS Basophils 0 10^3/ul (0-0.2); ABS Eosinophils 0.1 10^3/ul (0-0.6); ABS Lymphocytes 1.5 10^3/ul (1.0-4.8); ABS Monocytes 0.6 10^3/ul (0-0.8); ABS Neutrophils 5.5 10^3/ul (1.5-7.7); ABS Nucleated RBC 0 10^3/ul; Eosinophil % 0.7 % (0-6); Hematocrit 42 % (42-52); Hemoglobin 14.8 g/dl (14.0-18.0); Lymphocyte % 19.6 % (25-47); Mean Corpuscular HGB Conc 35 g/dl (31-36); Mean Corpuscular Hemoglobin 30 pg (27-31); Mean Corpuscular Volume 86 fL (80-94); Mean Platelet Volume 6 um3 (7.4-10.4); Nucleated Red Blood Cells % 0.1; Platelet Count 349 10^3/ul (150-450); Red Blood Count 4.87 10^6/ul (4.0-5.4); Red Cell Distribution Width 12 % (10.5-15); White Blood Count 7.7 10^3/ul (3.5-10.8)
[2017-05-30 10:30] LABS: INR 1.15 (0.77-1.02)
[2017-05-30 10:39] LABS: EGFR Non-African American 103.8 (>60)
[2017-05-30] MEDS: NS 0.9% 1000 ML* 2,000 ML IV ONE ×2 (11:00→11:01)
[2017-05-30] MEDS ORDERED: oxyCODONE/Acetamin 5/325 MG* TAB PO ONE (11:23)
--- NOTE | 2017-05-30 11:25 | RAD ---
INDICATION: Fever 9 days postop L3/L4 discectomy COMPARISON: None. TECHNIQUE: Single AP portable view of the chest was obtained. FINDINGS: Image quality is compromised due to the relative inferiority of a portable chest x-ray. The heart and mediastinum exhibit normal size and contour. The lungs are grossly clear. There is no evidence of a large pleural effusion. Visualized bones are normal for the patient's age. IMPRESSION: No radiographic evidence for acute cardiopulmonary abnormality on this portable chest x-ray.
[2017-05-30 11:41] LABS: Urine Appearance Clear; Urine Blood Negative (Negative); Urine Color Yellow; Urine Ketones Negative (Negative); Urine Protein Negative (Negative); Urine Urobilinogen Negative (Negative)
[2017-05-30 12:01] VITALS: BP 127/83
--- NOTE | 2017-05-30 12:37 | ED ---
Janneth Oakes Thomas, scribed for Alexander Allison MD on 05/30/17 at 1052 . Neck Pain - HPI Summary HPI Summary: The patient is a 26 year old male who had back surgery 9 days ago. Three days ago, the patient had a fever at 102 and since then, he has had fevers, malaise, and sweats on and off. The patient presents to the emergency department three days ago he developed tightness in [his] spinal cord and he describes a bolt through my protestant if I turn my head. Since onset of symptoms three days ago, these symptoms have improved. He has been on Percocet since the surgery. His primary care physician recently put him on cefprozil. Last week, the patient had a sore throat. The patient denies ear pain. He has a history of blood clots. 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 - History of Current Complaint Chief Complaint: EDFever Stated Complaint: BACK PAIN Time Seen by Provider: 05/30/17 10:26 Hx Obtained From: Patient Timing: Constant Onset/Duration: Started days ago - 3, Still Present Severity Currently: Moderate Pain Intensity: 4 Pain Scale Used: 0-10 Numeric Location: Discrete At: - neck Aggravating Factors: Movement Alleviating Factors: Nothing Associated Signs & Symptoms: Positive: Fever - afebrile in ED, but patient notes intermittent fever Related History: Other - Recent back surgery - Allergies/Home Medications Allergies/Adverse Reactions: Allergies Allergy/AdvReac Type Severity Reaction Status Date / Time atropine Allergy Severe See Comment Verified 05/21/17 09:34 PMH/Surg Hx/FS Hx/Imm Hx Endocrine/Hematology History: Reports: Hx Anticoagulant Therapy Denies: Hx Diabetes Cardiovascular History: Reports: Hx Deep Vein Thrombosis Denies: Hx Hypertension, Hx Pacemaker/ICD, Other Cardiovascular Problems/ Disorders Respiratory History: Reports: Hx Pulmonary Edema, Hx Pulmonary Embolism - 2012, Hx Sleep Apnea - history of, states only snores while on his back Denies: Other Respiratory Problems/Disorders GI History: Reports: Hx Gastroesophageal Reflux Disease - occasional, Hx Hiatal Hernia, Hx Ulcer - history of Denies: Other GI Disorders History: Denies: Hx Renal Disease, Other Problems/Disorders Musculoskeletal History: Reports: Hx Arthritis - osteoarthritis back, shoulders , neck, Hx Tendonitis - elbows, history of Denies: Other Musculoskeletal History Sensory History: Reports: Hx Contacts or Glasses - Wears contacts, will remove prior to surgery Denies: Hx Hearing Aid, Hx Hearing Problem Opthamlomology History: Reports: Hx Contacts or Glasses - Wears contacts, will remove prior to surgery Neurological History: Reports: Hx Migraine - ibuprofen, Hx Seizures Denies: Other Neuro Impairments/Disorders Psychiatric History: Reports: Hx Anxiety Denies: Hx Panic Disorder - Surgical History Surgery Procedure, Year, and Place: HERNIA REPAIR INFANT. RECONSTRUCTIVE RIGHT SHOULDER 2000. 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 Negative: Ear Ache Positive: Other - Neck pain, tightness All Other Systems Reviewed And Are Negative: Yes Physical Exam - Summary Physical Exam Summary: Appearance: The patient is well-nourished in no acute distress and in no acute pain. Skin: The skin is warm and dry and skin color reflects adequate perfusion. The wound on his back is clean. The proximal end of the wound is full, firm, and mildly tender. HEENT: ~The head is normocephalic and atraumatic. The pupils are equal and reactive. The conjunctivae are clear and without drainage. ~Nares are patent and without drainage. Mouth reveals moist mucous membranes and the throat is without erythema and exudate. The external ears are intact. The ear canals are patent and without drainage. The tympanic membranes are intact. Neck: the neck is supple. There is some diffuse paracervical muscle tenderness. There is no lympadenopathy. There are no carotid bruits. ~There is no neck vein distension. Respiratory: Chest is non-tender. ~Lungs are clear to auscultation and breath sounds are symmetrical and equal. Cardiovascular: Heart is regular rate and rhythm. ~There is no murmur or rub auscultated. ~~There is no peripheral edema and pulses are symmetrical and equal. Abdomen: The abdomen is soft and non-tender. ~There are normal bowel sounds heard in all four quadrants and there is no organomegaly palpated. Musculoskeletal: There is no back tenderness noted. ~Extremities are non-tender with full range of motion. ~There is good capillary refill. There is no peripheral edema or calf tenderness elicited. Neurological: Patient is alert and oriented to person, place and time. ~The patient has symmetrical motor strength in all four extremities. ~Cranial nerves are grossly intact. Deep tendon reflexes are symmetrical and equal in all four extremities. Psychiatric: The patient has an appropriate affect and does not exhibit any anxiety or depression. Triage Information Reviewed: Yes Vital Signs On Initial Exam: Initial Vitals Temp Pulse Resp BP Pulse Ox 96.7 F 94 18 148/82 98 05/30/17 09:45 05/30/17 09:45 05/30/17 09:45 05/30/17 09:45 05/30/17 09:45 Vital Signs Reviewed: Yes Diagnostics - Vital Signs Vital Signs Temp Pulse Resp BP Pulse Ox 05/30/17 09:45 96.7 F 94 18 148/82 98 - Laboratory Lab Results: Lab Results 05/30/17 05/30/17 05/30/17 Range/Units 10:12 10:12 10:12 WBC 7.7 (3.5-10.8) 10^3/ul RBC 4.87 (4.0-5.4) 10^6/ul Hgb 14.8 (14.0-18.0) g/dl Hct 42 (42-52) % MCV 86 (80-94) fL MCH 30 (27-31) pg MCHC 35 (31-36) g/dl RDW 12 (10.5-15) % Plt Count 349 (150-450) 10^3/ul MPV 6 L (7.4-10.4) um3 Neut % (Auto) 71.2 (38-83) % Lymph % (Auto) 19.6 L (25-47) % [place] % (Auto) 7.9 H (0-7) % Eos % (Auto) 0.7 (0-6) % Baso % (Auto) 0.6 (0-2) % Absolute Neuts (auto) 5.5 (1.5-7.7) 10^3/ul Absolute Lymphs (auto) 1.5 (1.0-4.8) 10^3/ul Absolute Monos (auto) 0.6 (0-0.8) 10^3/ul Absolute Eos (auto) 0.1 (0-0.6) 10^3/ul Absolute Basos (auto) 0 (0-0.2) 10^3/ul Absolute Nucleated RBC 0 10^3/ul Nucleated RBC % 0.1 INR (Anticoag Therapy) 1.15 H (0.77-1.02) APTT 33.6 (26.0-36.3) seconds Sodium 134 (133-145) mmol/L Potassium 4.2 (3.5-5.0) mmol/L Chloride 100 L (101-111) mmol/L Carbon Dioxide 27 (22-32) mmol/L Anion Gap 7 (2-11) mmol/L BUN 11 (6-24) mg/dL Creatinine 0.85 (0.67-1.17) mg/dL Est GFR ( Amer) 133.5 (>60) Est GFR (Non-Af Amer) 103.8 (>60) BUN/Creatinine Ratio 12.9 (8-20) Glucose 98 (70-100) mg/dL Lactic Acid (0.5-2.0) mmol/L Calcium 10.2 (8.6-10.3) mg/dL Total Bilirubin 0.50 (0.2-1.0) mg/dL AST 12 L (13-39) U/L ALT 17 (7-52) U/L Alkaline Phosphatase 42 (34-104) U/L Troponin I 0.00 (<0.04) ng/mL C-Reactive Protein 113.63 H (< 5.00) mg/L Total Protein 7.6 (6.4-8.9) g/dL Albumin 4.1 (3.2-5.2) g/dL Globulin 3.5 (2-4) g/dL Albumin/Globulin Ratio 1.2 (1-3) Lipase < 10 L (11.0-82.0) U/L // Range/Units 10:12 WBC (3.5-10.8) 10^3/ul RBC (4.0-5.4) 10^6/ul Hgb (14.0-18.0) g/dl Hct (42-52) % MCV (80-94) fL MCH (27-31) pg MCHC (31-36) g/dl RDW (10.5-15) % Plt Count (150-450) 10^3/ul MPV (7.4-10.4) um3 Neut % (Auto) (38-83) % Lymph % (Auto) (25-47) % [place] % (Auto) (0-7) % Eos % (Auto) (0-6) % Baso % (Auto) (0-2) % Absolute Neuts (auto) (1.5-7.7) 10^3/ul Absolute Lymphs (auto) (1.0-4.8) 10^3/ul Absolute Monos (auto) (0-0.8) 10^3/ul Absolute Eos (auto) (0-0.6) 10^3/ul Absolute Basos (auto) (0-0.2) 10^3/ul Absolute Nucleated RBC 10^3/ul Nucleated RBC % INR (Anticoag Therapy) (0.77-1.02) APTT (26.0-36.3) seconds Sodium (133-145) mmol/L Potassium (3.5-5.0) mmol/L Chloride (101-111) mmol/L Carbon Dioxide (22-32) mmol/L Anion Gap (2-11) mmol/L BUN (6-24) mg/dL Creatinine (0.67-1.17) mg/dL Est GFR ( Amer) (>60) Est GFR (Non-Af Amer) (>60) BUN/Creatinine Ratio (8-20) Glucose (70-100) mg/dL Lactic Acid 0.7 (0.5-2.0) mmol/L Calcium (8.6-10.3) mg/dL Total Bilirubin (0.2-1.0) mg/dL AST (13-39) U/L ALT (7-52) U/L Alkaline Phosphatase (34-104) U/L Troponin I (<0.04) ng/mL C-Reactive Protein (< 5.00) mg/L Total Protein (6.4-8.9) g/dL Albumin (3.2-5.2) g/dL Globulin (2-4) g/dL Albumin/Globulin Ratio (1-3) Lipase (11.0-82.0) U/L Result Diagrams: 05/30/17 10:12 05/30/17 10:12 Lab Statement: Any lab studies that have been ordered have been reviewed, and results considered in the medical decision making process. - Radiology CXR Xray Interpretation: No Acute Changes - No radiographic evidence for acute cardiopulmonary abnormality on this portable chest x-ray. Dr. Allison has reviewed this report. Radiology Interpretation Completed By: Radiologist - EKG 10:06 Cardiac Rate: NL EKG Rhythm: Sinus Rhythm - at 84 BPM EKG Interpretation: Normal EKG. Neck Course/Dx - Course Course Of Treatment: Mr. Carney presented with diffuse symptoms that are gradually resolving after starting on Thursday. He has been taking percocet and was afebrile here although he reports intermittent fevers. His vital signs were normal. His WBCs were normal although he had increased lymphs. His CRP was quite elevated at over 100. His exam was unrevealing with only slight fullness and tenderness (no fluctuance) at the proximal portion of his clean wound. I spole with Dr. Newell for his recommendation for further imaging or testing and he felt that Christian was safe for D/C and F/U on Thursday with Dr. Dial. He remained stable here. He may have a viral syndrome with the rightward shift although a post operative infection is still not out of the question. - Diagnoses Provider Diagnoses: Viral syndrome - Physician Notifications Discussed Care Of Patient With: Raj Newell Time Discussed With Above Provider: 11:14 Instructed by Provider To: Other - Dr. Newell, neurosurgery, says the patient can be discharged for follow up at Dr. Holder's office in two days. Discharge - Discharge Plan Condition: Stable Disposition: HOME Patient Education Materials: Viral Syndrome (ED) Referrals: Joby Lopez MD [Medical Doctor] - 06/01/17 Additional Instructions: Follow up at Dr. Holder' office on 06/01/17. Return to the emergency department for any new or worsening symptoms. The documentation as recorded by the Janneth tucker Thomas accurately reflects the service I personally performed and the decisions made by , Alexander Allison MD.
== END 2017-05-30 12:34 | disposition home or self-care (01) ==
LOC: ED 09:43
DX: B34.9 Viral infection, unspecified (principal); Z86.718 Personal history of other venous thrombosis and embolism; Z79.01 Long term (current) use of anticoagulants; Z87.891 Personal history of nicotine dependence; K21.9 Gastro-esophageal reflux disease without esophagitis
CPT/HCPCS: 36415; 71045; 80053; 81003; 83605; 83690; 84145; 84484; 85025; 85610; 85730; 86140; 87040; 87502; 93005; 96360; 99283; A9270-GY

== ENCOUNTER 2017-10-12 10:56 | Emergency (ER) | payer BC, OTHER ==
--- NOTE | 2017-10-12 11:13 | ED ---
Adult Trauma - HPI Summary HPI Summary: 32-year-old male presents with left shoulder and hip pain today. He was involved in taking on a patient and tripped over a wire and injured his left hip. He states he felt like his left hip and shoulder pop out of place and then pop back in. He has no pain currently. No numbness or tingling. No other injury. No head injury or loss consciousness. He did not take anything for pain. He is not does not any pain medication. He is right-handed. - History of Current Complaint Chief Complaint: EDHipPelvisInjury Stated Complaint: LT HIP & LT SHOULDER INJURY Time Seen by Provider: 10/12/17 11:10 Pain Intensity: 0 - Additional Pertinent History Primary Care Physician: JENNIFER - Allergy/Home Medications Allergies/Adverse Reactions: Allergies Allergy/AdvReac Type Severity Reaction Status Date / Time atropine Allergy Severe See Comment Verified 05/21/17 09:34 PMH/Surg Hx/FS Hx/Imm Hx Endocrine/Hematology History: Reports: Hx Anticoagulant Therapy Denies: Hx Diabetes Cardiovascular History: Reports: Hx Deep Vein Thrombosis Denies: Hx Hypertension, Hx Pacemaker/ICD, Other Cardiovascular Problems/ Disorders Respiratory History: Reports: Hx Pulmonary Edema, Hx Pulmonary Embolism - 2011, Hx Sleep Apnea - history of, states only snores while on his back Denies: Other Respiratory Problems/Disorders GI History: Reports: Hx Gastroesophageal Reflux Disease - occasional, Hx Hiatal Hernia, Hx Ulcer - history of Denies: Other GI Disorders History: Denies: Hx Renal Disease, Other Problems/Disorders Musculoskeletal History: Reports: Hx Arthritis - osteoarthritis back, shoulders , neck, Hx Tendonitis - elbows, history of Denies: Other Musculoskeletal History Sensory History: Reports: Hx Contacts or Glasses - Wears contacts, will remove prior to surgery Denies: Hx Hearing Aid, Hx Hearing Problem Opthamlomology History: Reports: Hx Contacts or Glasses - Wears contacts, will remove prior to surgery Neurological History: Reports: Hx Migraine - ibuprofen, Hx Seizures Denies: Other Neuro Impairments/Disorders Psychiatric History: Reports: Hx Anxiety Denies: Hx Panic Disorder - Surgical History Surgery Procedure, Year, and Place: HERNIA REPAIR . RECONSTRUCTIVE RIGHT SHOULDER 2000. 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, per pt Infectious Disease History: No Infectious Disease History: Denies: Traveled Outside the [place] in Last 30 Days - Family History Known Family History: Positive: Cardiac Disease, Hypertension, Blood Disorder - clotting disorders Negative: Diabetes - Social History Alcohol Use: None Alcohol Amount: once a month Hx Substance Use: No Substance Use Type: Reports: None Hx Tobacco Use: Yes Smoking Status (MU): Former Smoker Review of Systems Negative: Fever Negative: Chest Pain Negative: Shortness Of Breath Positive: Myalgia - left hip and shoulder pain All Other Systems Reviewed And Are Negative: Yes Physical Exam Triage Information Reviewed: Yes Vital Signs On Initial Exam: Initial Vitals Temp Pulse Resp BP Pulse Ox 98.3 F 90 16 162/99 99 10/12/17 11:02 10/12/17 11:02 10/12/17 11:02 10/12/17 11:02 10/12/17 11:02 Vital Signs Reviewed: Yes Appearance: Positive: Well-Appearing Skin: Positive: Warm, Dry Head/Face: Positive: Normal Head/Face Inspection Eyes: Positive: Normal, Conjunctiva Clear ENT: Positive: Pharynx normal Respiratory/Lung Sounds: Positive: Clear to Auscultation, Breath Sounds Present Cardiovascular: Positive: Normal, RRR Musculoskeletal: Positive: Strength/ROM Intact - left shoulder, hip, Other - good pulses, no tenderness left hip and shoulder Neurological: Positive: Normal Psychiatric: Positive: Normal Diagnostics - Vital Signs Vital Signs Temp Pulse Resp BP Pulse Ox 10/12/17 11:02 98.3 F 90 16 162/99 99 - Laboratory Lab Statement: Any lab studies that have been ordered have been reviewed, and results considered in the medical decision making process. - Radiology hip, shoulder Xray Interpretation: No Acute Changes Radiology Interpretation Completed By: Radiologist Adult Trauma Course/Dx - Course Course Of Treatment: 32-year-old male presents with left shoulder and hip pain today. He was involved in taking on a patient and tripped over a wire and injured his left hip. He states he felt like his left hip and shoulder pop out of place and then pop back in. He has no pain currently. No numbness or tingling. No other injury. No head injury or loss consciousness. On exam ambulating with normal gait. shoulder full range of motion. X-rays normal. Patient's xray normal. patient requestin muscle relaxer. Patient understands and agrees with plan. - Diagnoses Differential Diagnosis/HQI/PQRI: Positive: Contusion(s), Fracture, Dislocation Provider Diagnoses: Left shoulder pain, Left hip pain Discharge - Sign-Out/Discharge Documenting (check all that apply): Patient Departure - Discharge Plan Condition: Good Disposition: HOME Prescriptions: Cyclobenzaprine TAB* [Flexeril 10 MG TAB*] 10 mg PO TID PRN #[id number] tab PRN Reason: Pain Patient Education Materials: R.I.C.E. Treatment (ED) Referrals: Antony DUNNE,Mark Talavera [Primary Care Provider] - Additional Instructions: Take Tylenol or ibuprofen every 6 hours as needed for pain Apply ice, rest, elevate Follow up with primary care physician within 5 days Return to ED if develop any new or worsening symptoms - Billing Disposition and Condition Condition: GOOD Disposition: Home
--- NOTE | 2017-10-12 11:49 | RAD ---
Indication: Left shoulder pain. 4 views of left shoulder demonstrates AC joint arthritis. There is no fracture or dislocation noted. No other bone or joint abnormality is noted. IMPRESSION: No fracture of the left shoulder is noted
--- NOTE | 2017-10-12 11:49 | RAD ---
INDICATION: "Fell to likely a patient" COMPARISON: None TECHNIQUE: 3 views of the left hip were obtained. FINDINGS: The visualized bones of the left hip are well-corticated and properly aligned. The joint spaces are normal. There is no radiographic evidence of acute fracture or dislocation. IMPRESSION: Normal radiograph of the left hip. If the patient's symptoms persist follow-up imaging is recommended.
[2017-10-12 12:20] VITALS: BP 141/88
== END 2017-10-12 12:15 | disposition home or self-care (01) ==
LOC: ED 10:56
DX: M25.512 Pain in left shoulder (principal); M25.552 Pain in left hip; W22.8XXA Striking against or struck by other objects, initial encounter; Y92.9 Unspecified place or not applicable; Z87.891 Personal history of nicotine dependence; Z88.8 Allergy status to other drugs, medicaments and biological substances
CPT/HCPCS: 99282

== ENCOUNTER 2018-04-21 17:10 | Emergency (ER) | payer OTHER ==
--- NOTE | 2018-04-21 18:07 | ED ---
- HPI Summary HPI Summary: 32 yo male presents to [facility] [place] ED s/p bodily fluid exposure. 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 The body bag ripped and some body fluids splashed. A few droplets got onto pt's face and around his mouth. He immediately washed his face. Did not get any fluid inside of his mouth or eyes. He contacted hospital infection control and he tells me that he is expecting lab results from the body in question tomorrow. He currently has no symptoms. - History of Current Complaint Chief Complaint: EDExposureBodyFluid Stated Complaint: POSS EXPOSURE Time Seen by Provider: 04/21/18 18:00 Date of Incident: 04/21/18 Time of Incident: 15:30 PMH/Surg Hx/FS Hx/Imm Hx Endocrine/Hematology History: Reports: Hx Anticoagulant Therapy Denies: Hx Diabetes Cardiovascular History: Reports: Hx Deep Vein Thrombosis Denies: Hx Hypertension, Hx Pacemaker/ICD, Other Cardiovascular Problems/ Disorders Respiratory History: Reports: Hx Pulmonary Edema, Hx Pulmonary Embolism - 2011, Hx Sleep Apnea - history of, states only snores while on his back Denies: Other Respiratory Problems/Disorders GI History: Reports: Hx Gastroesophageal Reflux Disease - occasional, Hx Hiatal Hernia, Hx Ulcer - history of Denies: Other GI Disorders History: Denies: Hx Renal Disease, Other Problems/Disorders Musculoskeletal History: Reports: Hx Arthritis - osteoarthritis back, shoulders , neck, Hx Tendonitis - elbows, history of Denies: Other Musculoskeletal History Sensory History: Reports: Hx Contacts or Glasses - Wears contacts, will remove prior to surgery Denies: Hx Hearing Aid, Hx Hearing Problem Opthamlomology History: Reports: Hx Contacts or Glasses - Wears contacts, will remove prior to surgery Neurological History: Reports: Hx Migraine - ibuprofen, Hx Seizures Denies: Other Neuro Impairments/Disorders Psychiatric History: Reports: Hx Anxiety Denies: Hx Panic Disorder - Surgical History Surgery Procedure, Year, and Place: HERNIA REPAIR . RECONSTRUCTIVE RIGHT SHOULDER 2000. 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, per pt Infectious Disease History: No Infectious Disease History: Denies: Traveled Outside the [place] in Last 30 Days - Family History Known Family History: Positive: Cardiac Disease, Hypertension, Blood Disorder - clotting disorders Negative: Diabetes - Social History Alcohol Use: None Alcohol Amount: once a month Hx Substance Use: No Substance Use Type: Reports: None Hx Tobacco Use: Yes Smoking Status (MU): Former Smoker Review of Systems Constitutional: Negative Eyes: Negative ENT: Negative Cardiovascular: Negative Respiratory: Negative Gastrointestinal: Negative Skin: Negative Neurological: Negative Psychological: Normal All Other Systems Reviewed And Are Negative: Yes Physical Exam - Summary Physical Exam Summary: GENERAL: NAD. WDWN. No pain distress. SKIN: No rashes, sores, lesions, or open wounds. HEENT: Head: AT/NC Eyes: EOM intact. Conjunctiva clear without inflammation or discharge. Ears: Hearing grossly normal. TMs intact, no bulging, erythema, or edema. Nose: Nasal mucosa pink and moist. NTTP maxillary and frontal sinus. Throat: Posterior oropharynx without exudates, erythema, or tonsillar enlargement. Uvula midline. NECK: Supple. Nontender. No lymphadenopathy. CHEST: CTAB. No r/r/w. No accessory muscle use. Breathing comfortably and in no distress. CV: RRR. Without m/r/g. Pulses intact. Cap refill <2seconds NEURO: Alert. PSYCH: Age appropriate behavior. Triage Information Reviewed: Yes Vital Signs On Initial Exam: Initial Vitals Temp Pulse Resp BP Pulse Ox 98.7 F 97 18 136/96 96 04/21/18 17:21 04/21/18 17:21 04/21/18 17:21 04/21/18 17:21 04/21/18 17:21 Vital Signs Reviewed: Yes Diagnostics - Vital Signs Vital Signs Temp Pulse Resp BP Pulse Ox 04/21/18 17:21 98.7 F 97 18 136/96 96 - Laboratory Lab Statement: Any lab studies that have been ordered have been reviewed, and results considered in the medical decision making process. [place]ick Course/Dx - Course Course Of Treatment: Discussed that this seems to be a low-risk exposure with pt. He is anticipating labwork results from the body tomorrow. Discussed PEP and he declines at this time. Will draw for HIV, Hep B, and Hep C to have baseline results for him in case he decides to start PEP based on body's labwork tomorrow. Advised to f/u with hospital infection control. - Diagnoses Provider Diagnoses: History of exposure to hazardous bodily fluids Discharge - Sign-Out/Discharge Documenting (check all that apply): Patient Departure Patient Received Moderate/Deep Sedation with Procedure: No - Discharge Plan Condition: Stable Disposition: HOME Patient Education Materials: Postexposure Prophylaxis (ED), Body Substance Exposure (ED) Referrals: Antony DUNNE,Mark Talavera [Primary Care Provider] - Additional Instructions: If you develop a fever, shortness of breath, chest pain, new or worsening symptoms - please call your PCP or go to the ED. Your blood pressure was high at todays visit. Please see your primary provider within 4 weeks for recheck and re-evaluation. Your exposure is very low risk for transmission of disease. Please follow up with Germania De Paz tomorrow for further instruction. - Billing Disposition and Condition Condition: STABLE Disposition: Home
[2018-04-21] MEDS ORDERED: Tetan/Diph/Pertus SYR(Tdap)* 0.5 ML SYR(BOOSTRIX) use SYR IM ONE (18:15)
[2018-04-21 18:41] VITALS: BP 131/84
[2018-04-22 10:57] LABS: Hepatitis B Surface AB Not Immune (Immune)
[2018-04-22 11:58] LABS: Hepatitis C Antibody Nonreactive (Nonreactive)
[2018-04-22 12:06] LABS: Hepatitis B Surface Antigen Reactive (Prelim) (Nonreactive)
[2018-04-24 11:22] LABS: Hepatitis B Surface AG Negative (Negative)
== END 2018-04-21 18:40 | disposition home or self-care (01) ==
LOC: ED 17:10
DX: Z77.21 Contact with and (suspected) exposure to potentially hazardous body fluids (principal); Z23 Encounter for immunization; Z86.718 Personal history of other venous thrombosis and embolism; Z79.01 Long term (current) use of anticoagulants; Z86.711 Personal history of pulmonary embolism; K21.9 Gastro-esophageal reflux disease without esophagitis; F41.9 Anxiety disorder, unspecified; Z87.891 Personal history of nicotine dependence
CPT/HCPCS: 36415; 86703; 86706; 86803; 87340; 90471; 90715; 99282

== ENCOUNTER 2018-05-06 10:02 | Emergency (ER) | payer BC, OTHER ==
[2018-05-06 10:13] VITALS: BP 134/100
--- NOTE | 2018-05-06 10:50 | ED ---
Back Pain - HPI Summary HPI Summary: 32 year old M presenting to [facility] with a chief complaint of low back pain since yesterday, worse since this morning. The patient rates the pain 6/10 in severity. Symptoms aggravated by movement. Symptoms alleviated by nothing. Patient reports difficulty ambulating. Patient denies bilateral leg weakness, dysuria, incontinence. Patient has treated pain with ibuprofen [employer]. Patient had back surgery in May [address] Holder. - History of Current Complaint Chief Complaint: EDBackInjuryPain Stated Complaint: BACK PAIN Time Seen by Provider: 05/06/18 10:33 Hx Obtained From: Patient Onset/Duration: Lasting Days - 1, Still Present, Worse Since - this morning Onset/Duration: Still Present Timing: Constant Severity Currently: Moderate Pain Intensity: 6 Pain Scale Used: 0-10 Numeric Aggravating Symptom(s): Movement Alleviating Symptom(s): Nothing Associated Signs And Symptoms: Positive: Negative - bilateral leg weakness, dysuria, incontinence, Other - difficulty ambulating - Allergies/Home Medications Allergies/Adverse Reactions: Allergies Allergy/AdvReac Type Severity Reaction Status Date / Time atropine Allergy Severe See Comment Verified 05/06/18 10:13 PMH/Surg Hx/FS Hx/Imm Hx Previously Healthy: No Endocrine/Hematology History: Reports: Hx Anticoagulant Therapy Denies: Hx Diabetes Cardiovascular History: Reports: Hx Deep Vein Thrombosis Denies: Hx Hypertension, Hx Pacemaker/ICD, Other Cardiovascular Problems/ Disorders Respiratory History: Reports: Hx Pulmonary Edema, Hx Pulmonary Embolism - 2011, Hx Sleep Apnea - history of, states only snores while on his back Denies: Other Respiratory Problems/Disorders GI History: Reports: Hx Gastroesophageal Reflux Disease - occasional, Hx Hiatal Hernia, Hx Ulcer - history of Denies: Other GI Disorders History: Denies: Hx Renal Disease, Other Problems/Disorders Musculoskeletal History: Reports: Hx Arthritis - osteoarthritis back, shoulders , neck, Hx Tendonitis - elbows, history of Denies: Other Musculoskeletal History Sensory History: Reports: Hx Contacts or Glasses - Wears contacts, will remove prior to surgery Denies: Hx Hearing Aid, Hx Hearing Problem Opthamlomology History: Reports: Hx Contacts or Glasses - Wears contacts, will remove prior to surgery Neurological History: Reports: Hx Migraine - ibuprofen, Hx Seizures Denies: Other Neuro Impairments/Disorders Psychiatric History: Reports: Hx Anxiety Denies: Hx Panic Disorder - Surgical History Surgery Procedure, Year, and Place: HERNIA REPAIR . RECONSTRUCTIVE RIGHT SHOULDER 2000. Back surgery 2018 Hx Anesthesia Reactions: Yes - Atropine caused heart to stop as an , per pt Infectious Disease History: No Infectious Disease History: Denies: Traveled Outside the [place] in Last 30 Days - Family History Known Family History: Positive: Cardiac Disease, Hypertension, Blood Disorder - clotting disorders Negative: Diabetes - Social History Alcohol Use: Rare Alcohol Amount: once a month Hx Substance Use: No Substance Use Type: Reports: None Hx Tobacco Use: Yes Smoking Status (MU): Former Smoker Review of Systems Positive: Other - difficulty ambulating Negative: dysuria, incontinence Positive: Other - low back pain Neurological: Negative - bilateral leg weakness All Other Systems Reviewed And Are Negative: Yes Physical Exam - Summary Physical Exam Summary: Appearance: The patient is well-nourished in no acute distress and in no acute pain. Skin: The skin is warm and dry and skin color reflects adequate perfusion. HEENT: The head is normocephalic and atraumatic. The pupils are equal and reactive. The conjunctivae are clear and without drainage. Nares are patent and without drainage. Mouth reveals moist mucous membranes and the throat is without erythema and exudate. The external ears are intact. The ear canals are patent and without drainage. The tympanic membranes are intact. Neck: The neck is supple with full range of motion and non-tender. There are no carotid bruits. There is no neck vein distension. Respiratory: Chest is non-tender. Lungs are clear to auscultation and breath sounds are symmetrical and equal. Cardiovascular: Heart is regular rate and rhythm. There is no murmur or rub auscultated. There is no peripheral edema and pulses are symmetrical and equal. Abdomen: The abdomen is soft and non-tender. There are normal bowel sounds heard in all four quadrants and there is no organomegaly palpated. Musculoskeletal: Patient has positive straight leg raise referred to the right at 45 degrees bilaterally Neurological: Patient is alert and oriented to person, place and time. The patient has symmetrical motor strength in all four extremities. Cranial nerves are grossly intact. Deep tendon reflexes are symmetrical and equal in all four extremities. Psychiatric: The patient has an appropriate affect and does not exhibit any anxiety or depression Triage Information Reviewed: Yes Vital Signs On Initial Exam: Initial Vitals Temp Pulse Resp BP Pulse Ox 97.9 F 77 18 134/100 100 02/21/19 10:11 05/06/18 10:11 05/06/18 10:11 05/06/18 10:11 05/06/18 10:11 Vital Signs Reviewed: Yes Diagnostics - Vital Signs Vital Signs Temp Pulse Resp BP Pulse Ox 05/06/18 10:11 97.9 F 77 18 134/100 100 - Laboratory Lab Statement: Any lab studies that have been ordered have been reviewed, and results considered in the medical decision making process. Back Pain Course/Dx - Course Course Of Treatment: Christian presented with an exacerbation of his low back pain and signs of sciatica on exam. He was nontoxic in appearance with stable vitals but had a good deal of difficulty getting around. I'm treating him symptomatically with Ativan as a muscle relaxer, ibuprofen and tramadol for breakthrough pain. - Diagnoses Provider Diagnoses: Low back strain Discharge - Sign-Out/Discharge Documenting (check all that apply): Patient Departure - Discharge Patient Received Moderate/Deep Sedation with Procedure: No - Discharge Plan Condition: Stable Disposition: HOME Prescriptions: LORazepam TAB(*) [Ativan TAB(*)] 1 mg PO Q6H PRN #20 tab MDD 4 PRN Reason: Pain traMADol TAB* [Ultram*] 50 mg PO Q6HR PRN #20 tab MDD 4 PRN Reason: Pain Patient Education Materials: Low Back Strain (ED), Back Pain (ED), Lower Back Exercises (ED) Referrals: Antony DUNNE,Mark Talavera [Primary Care Provider] - 3 Days Additional Instructions: Use ibuprofen for the pain. Follow up with your primary care provider in 3 days. Return to the Emergency Department for new or worsening symptoms. - Billing Disposition and Condition Condition: STABLE Disposition: Home - Attestation Statements Document Initiated by Scribe: Yes Documenting Scribe: Jessica Domingo Provider For Whom [facility] is Documenting (Include Credential): Alexander Allison MD Scribe Attestation: Champ, Jessica Domingo, scribed for Alexander Allison MD on 05/06/18 at 2122. Scribe Documentation Reviewed: Yes Provider Attestation: The documentation as recorded by the Jessica tucker accurately reflects the service I personally performed and the decisions made by me, Alexander Allison MD Status of Scribe Document: Viewed
== END 2018-05-06 11:03 | disposition home or self-care (01) ==
LOC: ED 10:02
DX: S39.012A Strain of muscle, fascia and tendon of lower back, initial encounter (principal); M54.5 Low back pain; Z79.01 Long term (current) use of anticoagulants; Z87.891 Personal history of nicotine dependence; Z86.718 Personal history of other venous thrombosis and embolism; Z86.711 Personal history of pulmonary embolism; X58.XXXA Exposure to other specified factors, initial encounter; Y92.9 Unspecified place or not applicable
CPT/HCPCS: 99282

== ENCOUNTER 2019-04-19 06:12 | Emergency (ER) | payer BC ==
[2019-04-19] MEDS ORDERED: Amoxicillin/Clavulanate TAB* 875 MG PO ONE (06:33)
--- NOTE | 2019-04-19 06:35 | ED ---
Throat Pain/Nasal Congestion - HPI Summary HPI Summary: 33-year-old male presents to the emergency department today complaining of left ear pain which began 4 days ago. Patient states she has 8 out of 10 left ear pain with no drainage or fevers which is made better with ibuprofen and Tylenol. Patient states he has been using Ciprodex eardrops with no relief of symptoms. Patient denies fever, chest pain, dental pain, abdominal pain, nausea , vomiting, diarrhea or shortness of breath, rash. Patient denies pain with palpation of the mastoid process. Surgical history and family history is noncontributory. - History of Current Complaint Chief Complaint: EDEarPain Time Seen by Provider: 04/19/19 06:20 Hx Obtained From: Patient Onset/Duration: Gradual Onset Severity: Moderate Cough: None - Allergies/Home Medications Allergies/Adverse Reactions: Allergies Allergy/AdvReac Type Severity Reaction Status Date / Time atropine Allergy Severe See Comment Verified 04/19/19 06:14 PMH/Surg Hx/FS Hx/Imm Hx Endocrine/Hematology History: Reports: Hx Anticoagulant Therapy Denies: Hx Diabetes Cardiovascular History: Reports: Hx Deep Vein Thrombosis Denies: Hx Hypertension, Hx Pacemaker/ICD, Other Cardiovascular Problems/ Disorders Respiratory History: Reports: Hx Pulmonary Edema, Hx Pulmonary Embolism - 2012, Hx Sleep Apnea - history of, states only snores while on his back Denies: Other Respiratory Problems/Disorders GI History: Reports: Hx Gastroesophageal Reflux Disease - occasional, Hx Hiatal Hernia, Hx Ulcer - history of Denies: Other GI Disorders History: Denies: Hx Renal Disease, Other Problems/Disorders Musculoskeletal History: Reports: Hx Arthritis - osteoarthritis back, shoulders , neck, Hx Tendonitis - elbows, history of Denies: Other Musculoskeletal History Sensory History: Reports: Hx Contacts or Glasses - Wears contacts, will remove prior to surgery Denies: Hx Hearing Aid, Hx Hearing Problem Opthamlomology History: Reports: Hx Contacts or Glasses - Wears contacts, will remove prior to surgery Neurological History: Reports: Hx Migraine - ibuprofen, Hx Seizures Denies: Other Neuro Impairments/Disorders Psychiatric History: Reports: Hx Anxiety Denies: Hx Panic Disorder - Surgical History Surgery Procedure, Year, and Place: HERNIA REPAIR INFANT. RECONSTRUCTIVE RIGHT SHOULDER 2000. 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 Negative: Epistaxis, Dental Pain, Sore Throat Cardiovascular: Negative Respiratory: Negative Gastrointestinal: Negative Genitourinary: Negative Musculoskeletal: Negative Skin: Negative Neurological: Negative Psychological: Normal All Other Systems Reviewed And Are Negative: Yes Physical Exam - Summary Physical Exam Summary: Inspection of the right ear reveals pearly zambrano tympanic membrane with good, voiding and good positioning. Inspection of the left tympanic membranes reveal erythema with bulging. Examination of the left TM is done with significant pain. No evidence of tympanic membrane perforation. Triage Information Reviewed: Yes Vital Signs On Initial Exam: Initial Vitals Temp Pulse Resp BP Pulse Ox 97.7 F 60 15 140/88 97 04/19/19 06:13 04/19/19 06:13 04/19/19 06:13 04/19/19 06:13 04/19/19 06:13 Vital Signs Reviewed: Yes Appearance: Positive: Well-Appearing, No Pain Distress, Well-Nourished Skin: Positive: Warm, Skin Color Reflects Adequate Perfusion Eyes: Positive: EOMI, DORI ENT: Positive: Hearing grossly normal, Pharynx normal, TM bulging, TM red. Negative: Trismus, Muffled voice, Dental tenderness Respiratory/Lung Sounds: Positive: Clear to Auscultation, Breath Sounds Present Cardiovascular: Positive: RRR, S1, S2 Abdomen Description: Positive: Nontender, Soft Bowel Sounds: Positive: Present Neurological: Positive: Sensory/Motor Intact, Alert, Oriented to Person Place, Time, Normal Gait, Facial Symmetry, Speech Normal Psychiatric: Positive: Normal, Affect/Mood Appropriate AVPU Assessment: Alert Procedures - Sedation Patient Received Moderate/Deep Sedation with Procedure: No Diagnostics - Vital Signs Vital Signs Temp Pulse Resp BP Pulse Ox 04/19/19 06:13 97.7 F 60 15 140/88 97 - Laboratory Lab Statement: Any lab studies that have been ordered have been reviewed, and results considered in the medical decision making process. EENT Course/Dx - Course Course Of Treatment: Patient was evaluated today in the emergency department for left ear pain. Patient seen and examined his vitals are stable and he is afebrile. Patient's physical exam is consistent with acute otitis media left ear. Patient was given 1 dose of Augmentin in the emergency department and sent prescription for Augmentin twice a day 10 days. Patient instructed to take ibuprofen 600 mg every 6 hours needed for pain. Patient discharged with outpatient follow-up. No evidence of otitis conjunctivitis syndrome, mastoiditis. - Differential Diagnoses Differential Diagnoses: Dental Abscess, Dental Caries, Mastoiditis, Otitis Externa, Otitis Media - Diagnoses Provider Diagnoses: Ear pain, left Discharge ED - Sign-Out/Discharge Documenting (check all that apply): Patient Departure - Discharge Plan Condition: Stable Disposition: HOME Prescriptions: Amoxicillin/Clavulanate TAB* [Augmentin TAB 875*] 875 mg PO BID #20 tab Patient Education Materials: Ear Infection (ED) Referrals: Antony DUNNE,Mark Talavera [Primary Care Provider] - 5 Days Additional Instructions: Please take Augmentin 875 mg every 12 hours for 10 days. Please complete antibiotic course even if your symptoms resolved. You may take ibuprofen 600 mg every 6 hours alternated with Tylenol 650 mg every 6 hours for pain. Please follow up with your primary care provider in 3-5 days for further evaluation and management. Please return to the emergency department immediately if you develop any new or worsening symptoms. - Billing Disposition and Condition Condition: STABLE Disposition: Home
[2019-04-19 06:57] VITALS: BP 135/92
== END 2019-04-19 06:56 | disposition home or self-care (01) ==
LOC: ED 06:12
DX: H92.02 Otalgia, left ear (principal); K21.9 Gastro-esophageal reflux disease without esophagitis; F41.9 Anxiety disorder, unspecified; Z87.891 Personal history of nicotine dependence; Z86.718 Personal history of other venous thrombosis and embolism; Z86.711 Personal history of pulmonary embolism; Z88.8 Allergy status to other drugs, medicaments and biological substances
CPT/HCPCS: 99282; A9270-GY